=== PATIENT | male | born 1935 | race Caucasian/White ===

== ENCOUNTER 2017-03-25 11:40 | Inpatient (IN) | payer MEDICARE, OTHER ==
[2017-03-20 10:06] LABS: EOSINOPHILS # (AUTO) 0.1 X10'3 (0-0.9); EOSINOPHILS % (AUTO) 1.8 % (0-6); HEMATOCRIT 33.9 % (42.0-52.0); HEMOGLOBIN 11.4 g/dl (14.0-17.9); LYMPHOCYTES # (AUTO) 0.9 X10'3 (1.1-4.8); LYMPHOCYTES % (AUTO) 21.1 % (21-51); MEAN CORPUSCULAR HEMOGLOBIN 29.6 PG (27.0-31.0); MEAN CORPUSCULAR HGB CONC 33.5 % (33.0-36.5); MEAN CORPUSCULAR VOLUME 88.4 FL (78-98); MEAN PLATELET VOLUME 6.7 FL (7.4-10.4); MONOCYTES # (AUTO) 0.6 X10'3 (0-0.9); MONOCYTES % (AUTO) 14.7 % (2-12); NEUTROPHILS # (AUTO) 2.6 X10'3 (1.8-7.7); NEUTROPHILS % (AUTO) 61.4 % (42-75); PLATELET COUNT 313 X10'3 (140-440); RED BLOOD COUNT 3.84 X10'6 (4.70-6.10); RED CELL DISTRIBUTION WIDTH 15.1 % (11.5-14.5); WHITE BLOOD COUNT 4.2 X10'3 (4.5-11.0)
[2017-03-20 10:17] LABS: PARTIAL THROMBOPLASTIN TIME 28 SECONDS (22-32); PROTHROMBIN TIME 10.1 SECONDS (9.0-12.0)
[2017-03-20 10:28] LABS: ALBUMIN 3.4 G/DL (3.4-5.0); ANION GAP 6 (8-16); BLOOD UREA NITROGEN 18 MG/DL (7-18); BUN/CREATININE RATIO 17.8 (5.4-32.0); CALCIUM 9.6 MG/DL (8.5-10.1); CHLORIDE 102 MMOL/L (99-107); CHOL/HDL RATIO 4.5 (0.00-4.99); CHOLESTEROL 284 MG/DL (0-200); CREATININE 1.01 MG/DL (0.60-1.10); GLUCOSE 95 MG/DL (70-104); HDL CHOLESTEROL 63 MG/DL (35-60); LDL CHOLESTEROL 197 MG/DL (50-100); POTASSIUM 4.6 MMOL/L (3.5-5.1); SODIUM 138 MMOL/L (135-145); TOTAL CARBON DIOXIDE 30.1 MMOL/L (24-32); TRIGLYCERIDES 108 MG/DL (20-135); eGFR 71 ML/MIN
[2017-03-25] VITALS (9 sets, daily range): BP systolic 97–171; BP diastolic 47–84
[~2017-03-25] VITALS: Ht 180.3 cm; Wt 65.8 kg
[~2017-03-25 11:40] MED LIST: AMLO5TAB4 PO; FOLI1TAB16 PO; IBUP-24 PO
[2017-03-25] MEDS ORDERED: CLOP75TA15 PO (12:20)
[2017-03-25] MEDS ORDERED: LORazepam 0.5 MG tablet PO PRN (13:00)
[2017-03-25] MEDS ORDERED: diphenhydrAMINE 25mg capsule PO PRN (13:00)
[2017-03-25] MEDS: normal saline 1000ml 1,000 ML IV SCH ×4 (16:26→19:42)
[2017-03-25] MEDS ORDERED: IOHEXOL 350 MG/ML 150 ML injection IV ONE (16:43)
[2017-03-25] MEDS ORDERED: iohexol 350 MG/ML 50ML vial IV ONE (16:43)
[2017-03-25] MEDS ORDERED: LIDOcaine 1%/PF (10mg/ml) 5ml vial ONE (16:45)
[2017-03-25] MEDS ORDERED: heparin 1,000unit/ml 10ml vial 10 ML ONE (17:08)
[2017-03-25] MEDS ORDERED: atropine 0.1mg/ml 10ml syringe ONE (17:08)
[2017-03-25] MEDS ORDERED: DOPamine 400mg/D5W 250ml 0 ML IV ONE (17:08)
[2017-03-25] MEDS ORDERED: phenylephrine 10mg/ml inj IV ONE (17:09)
[2017-03-25] MEDS ORDERED: HYDROcodone/acetaminophen 10/325mg tab PO PRN (18:55)
[2017-03-25] MEDS ORDERED: ondansetron/PF 4mg/2ml inj IV PRN (18:55)
[2017-03-25] MEDS ORDERED: OXAZEpam 15mg capsule PO PRN (18:55)
[2017-03-25] MEDS ORDERED: nitroGLYCERIN 0.4mg SUBLingual tab SL PRN (18:55)
[2017-03-25] MEDS ORDERED: HYDROcodone/acetaminophen 5mg/325mg tablet PO PRN (18:55)
[2017-03-25] MEDS ORDERED: proCHLORperazine 10 MG/2 ml inj IV PRN (18:55)
[2017-03-26 03:00] VITALS: BP 115/72
[2017-03-26 06:00] VITALS: BP 113/49
[2017-03-26] MEDS ORDERED: NICO-687 TD (06:26)
[2017-03-26] MEDS ORDERED: ASPI-1265 PO (06:26)
[2017-03-26] MEDS ORDERED: ATOR20TA66 PO (06:26)
[2017-03-26 07:22] LABS: CHOL/HDL RATIO 4.6 (0.00-4.99); CHOLESTEROL 250 MG/DL (0-200); HDL CHOLESTEROL 54 MG/DL (35-60); LDL CHOLESTEROL 172 MG/DL (50-100); TRIGLYCERIDES 93 MG/DL (20-135)
[2017-03-26] MEDS ORDERED: atorvastatin 20mg tablet PO SCH (08:00)
[2017-03-26] MEDS ORDERED: nicotine 21mg patch - 24 hr TD SCH (08:00)
[2017-03-26] MEDS ORDERED: aspirin 81mg tab.chew PO SCH (08:30)
[2017-03-26] MEDS: normal saline 1000ml 1,000 ML IV SCH (09:00)
== END 2017-03-26 09:29 | disposition home or self-care (01) | DRG 68 ==
LOC: SSTAY O 11:40 → PCU 3S 18:44 → SSTAY O 18:45 → PCU 3S 18:51
PROVIDERS: ADMIT Internal Medicine Interventional Cardiology; ATTEND Internal Medicine Interventional Cardiology
PROC: B3131ZZ Fluoroscopy of Right Common Carotid Artery using Low Osmolar Contrast (ICD-10-PCS; principal; 2017-03-25)
PROC: B4101ZZ Fluoroscopy of Abdominal Aorta using Low Osmolar Contrast (ICD-10-PCS; 2017-03-25)
DX: I65.21 Occlusion and stenosis of right carotid artery (principal); I44.2 Atrioventricular block, complete; I71.4 Abdominal aortic aneurysm, without rupture; I73.9 Peripheral vascular disease, unspecified; Z79.82 Long term (current) use of aspirin; Z87.891 Personal history of nicotine dependence; Z85.810 Personal history of malignant neoplasm of tongue; Z79.02 Long term (current) use of antithrombotics/antiplatelets
CPT/HCPCS: 36222; 36415; 75625; 80048; 80061; 85025; 85610; 85730; A4620; A6257; C1769; C1894; J0461; J1265; J1644; J2001; J2370; J7030; Q0163; Q9967